=== PATIENT | female | born 1990 | race Caucasian/White ===

== ENCOUNTER 2020-05-03 11:09 | Outpatient (CLI) | payer BC ==
[2020-05-03] MEDS ORDERED: LEVO150T PO (11:36)
== END 2020-05-03 23:59 | disposition home or self-care (01) ==
LOC: STAR 11:09
PROVIDERS: ATTEND Otolaryngology
DX: Z01.818 Encounter for other preprocedural examination (principal); Z11.59 Encounter for screening for other viral diseases
CPT/HCPCS: 36415; 87635

== ENCOUNTER 2020-05-08 05:47 | Day surgery (SDC) | payer BC ==
[2020-05-03 11:31] VITALS: BP 109/73
[~2020-05-08] VITALS: Ht 157.5 cm; Wt 53.0 kg
[~2020-05-08 05:47] MED LIST: LEVO150T PO
[2020-05-08] MEDS ORDERED: LACTATED RINGERS 1,000 ML IV SCH (06:35)
[2020-05-08] MEDS ORDERED: CHLORHEXIDINE 15 ML UDC MM ONE (07:00)
[2020-05-08] MEDS ORDERED: CIPROFLOXACIN/HYDROCORTISONE EAR SUSP 0.2-1%, 10ML ONE (07:07)
[2020-05-08 07:15] LABS: HCG UR SG 1.019 (1.003-1.030)
[2020-05-08] MEDS ORDERED: SCOPOLAMINE 1MG PATCH TD STA ×2 (07:17→07:20)
[2020-05-08] MEDS ORDERED: SCOPOLAMINE 1MG PATCH TD ONE (07:19)
[2020-05-08] MEDS ORDERED: LIDOCAINE PF 2%, 5ML ONE (07:19)
[2020-05-08] MEDS ORDERED: ONDANSETRON 2MG/ML, 2ML ONE (07:19)
[2020-05-08] MEDS ORDERED: MIDAZOLAM 1 MG/ML, 2ML ONE (07:25)
[2020-05-08] MEDS ORDERED: DEXAMETHASONE 4 MG/ML, 1ML ONE (07:25)
[2020-05-08] MEDS ORDERED: GLYCOPYRROLATE 0.2MG/1ML, 5ML ONE (07:25)
[2020-05-08] MEDS ORDERED: PROPOFOL 10 MG/ML, 20ML ONE (07:25)
[2020-05-08] MEDS ORDERED: DIAZEPAM 5 MG/ML, 2ML IVPush PRN (07:30)
[2020-05-08] MEDS ORDERED: LABETALOL 5MG/ML, 20ML IV PRN (07:30)
[2020-05-08] MEDS ORDERED: FENTANYL PF 100 MCG/2ML IV PRN (07:30)
[2020-05-08] MEDS ORDERED: hydrALAzine 20 MG/ML, 1ML IV PRN (07:30)
[2020-05-08] MEDS ORDERED: METHOCARBAMOL 1,000 MG in DEXTROSE 5% 100 ML IV PRN (07:30)
[2020-05-08] MEDS ORDERED: HYDROcodone/APAP 7.5-325MG/15ML UDC PO PRN (07:30)
[2020-05-08] MEDS ORDERED: ALBUTEROL/IPRATROPIUM 2.5MG/0.5MG, 3 ML NPPB PRN (07:30)
[2020-05-08] MEDS ORDERED: HYDROmorphone 1 MG/ML, 1ML INJ IVPush PRN (07:30)
[2020-05-08] MEDS ORDERED: HALOPERIDOL 5 MG/ML IV PRN (07:30)
[2020-05-08] MEDS ORDERED: KETOROLAC 30 MG/1 ML IVPush PRN (07:30)
[2020-05-08] MEDS ORDERED: DIPHENHYDRAMINE 50 MG/ML, 1ML IVPush PRN (07:30)
[2020-05-08] MEDS ORDERED: LORazepam 2 MG/ML, 1ML IVPush PRN (07:30)
[2020-05-08] MEDS ORDERED: EPHEDRINE 50 MG/ML, 1ML IVPush PRN (07:30)
[2020-05-08] MEDS ORDERED: EPHEDRINE 50 MG/ML, 1ML IM PRN (07:30)
[2020-05-08] MEDS ORDERED: ONDANSETRON 2MG/ML, 2ML IVPush PRN (07:30)
[2020-05-08] MEDS ORDERED: METOCLOPRAMIDE 5 MG/ML, 2ML IVPush PRN (07:30)
[2020-05-08] MEDS ORDERED: OXYcodone 5 MG/5 ML ORAL.SOL UDC PO PRN (07:30)
[2020-05-08] MEDS ORDERED: MIDAZOLAM 1 MG/ML, 2ML IV PRN (07:30)
[2020-05-08] MEDS ORDERED: MEPERIDINE/PF 25MG/ML,1ML ONE (08:17)
== END 2020-05-08 08:45 | disposition home or self-care (01) ==
LOC: OUT 05:47
PROVIDERS: ATTEND Otolaryngology
DX: H69.93 Unspecified Eustachian tube disorder, bilateral (principal); E03.9 Hypothyroidism, unspecified; Z98.890 Other specified postprocedural states; Z88.2 Allergy status to sulfonamides; Z88.0 Allergy status to penicillin; Z79.899 Other long term (current) drug therapy; Z82.49 Family history of ischemic heart disease and other diseases of the circulatory system
CPT/HCPCS: 69436; 81025; J1100; J2250; J2405; J2704; J7120; L8613; 36415; 87635